=== PATIENT | male | born 1955 | race Caucasian/White ===

== ENCOUNTER 2017-07-04 13:15 | Observation (INO) | payer MEDICARE ==
[~2017-07-04] VITALS: Ht 167.6 cm; Wt 68.0 kg
[~2017-07-04 13:15] MED LIST: ACET325 PO; ASPI325; Accupril40 MG PO; Aspir 8181 MG PO; Ativan1 MG SL; FOLI1 PO; HYDACE5; HYDCHL25 PO; IBUP200; IBUP800 PO; Keflex500 MG PO; LEVE500 PO; LISI5 PO; LOSHYD; METO50ER PO; MULVITA; MULVITMIND PO; Multivitamin1 EAC1 PO; Norco 10-325 T1 EACH PO; Norco 5-325 Ta1 EACH PO; Percocet 5-3251 EACH PO; QUIN10; ROSI2; UNKNOWN BP MED; Vanquish Caple1 EACH PO; Vitamin B-150 MG PO
[2017-07-04] MEDS ORDERED: PANT40 PO (13:30)
[2017-07-04 13:58] LABS: BASOPHILS ABSOLUTE AUTO 0.06 K/mm3 (0.00-0.23); BASOPHILS PERCENT AUTO 1 % (0-2); EOSINOPHILS ABSOLUTE AUTO 0.02 K/mm3 (0.00-0.68); EOSINOPHILS PERCENT AUTO 0 % (0-6); Hematocrit 46.5 % (37.0-53.0); Hemoglobin 16.4 g/dL (13.5-17.5); IMMATURE GRAN ABSOLUTE AUTO 0.04 K/mm3 (0.00-0.10); IMMATURE GRAN PERCENT AUTO 0 % (0-1); LYMPHOCYTES ABSOLUTE AUTO 1.37 K/mm3 (0.84-5.20); LYMPHOCYTES PERCENT AUTO 13 % (21-46); MONOCYTES ABSOLUTE AUTO 0.81 K/mm3 (0.16-1.47); MONOCYTES PERCENT AUTO 7 % (4-13); Mean Corpuscular HGB 32.7 pg (26.0-34.0); Mean Corpuscular HGB Conc 35.3 g/dL (31.5-36.5); Mean Corpuscular Volume 93 fL (80-100); Mean Platelet Volume 9.2 fL (9.1-12.4); NEUTROPHILS ABSOLUTE AUTO 8.67 K/mm3 (1.96-9.15); NEUTROPHILS PERCENT AUTO 79 % (41-73); Platelet Count 348 K/mm3 (150-400); Red Blood Cell Count 5.02 M/mm3 (4.30-5.90); White Blood Cell Count 10.97 K/mm3 (4.00-11.30)
[2017-07-04 14:22] LABS: Alanine Aminotransfer (ALT/SGP 45 U/L (12-78); Albumin, Blood 3.9 g/dL (3.4-5.0); Alk Phos 85 U/L (50-136); Anion Gap 8 mmol/L (6-16); Aspartate Aminotrans (AST/SGOT 80 U/L (12-37); Bilirubin, Total 0.6 mg/dL (0.1-1.0); Blood Urea Nitrogen 20 mg/dL (8-24); CO2, Blood 24 mmol/L (21-32); Chloride, Blood 106 mmol/L (98-108); Glomerular Filtration Rate >60 (60-); Glucose, Blood 98 mg/dL (70-99); Potassium, Blood 4.1 mmol/L (3.5-5.5); Sodium, Blood 138 mmol/L (136-145); Total Protein, Blood 7.9 g/dL (6.4-8.2)
[2017-07-04 14:26] LABS: CPK Creatine Kinase 5200 U/L (39-308)
[2017-07-04 14:50] LABS: Creatine Kinase MB Index 0.1 (0.0-4.0)
[2017-07-04 15:15] LABS: Ethanol (Alcohol), Blood, Med <3 mg/dL
[2017-07-05 02:23] LABS: Source, Urine Voided
[2017-07-05 02:27] LABS: Bilirubin, Urine Neg (Neg); Blood, Urine Neg (Neg); Glucose Qualitative, Urine Neg (Neg); Ketones, Urine 1+ (Neg); Leukocyte Esterase, Urine 1+ (Neg); Nitrite, Urine Neg (Neg); Protein, Urine 1+ (Neg); Urobilinogen, Urine 2+ (Normal)
[2017-07-05 02:29] LABS: Appearance, Urine Clear (Clear); Color, Urine Yellow (P-Yellow)
[2017-07-05 02:41] LABS: Bacteria Few /hpf; Hyaline Casts Rare /lpf (0-2); Mucus Light (0-Heavy); Red Blood Cells, Urine Not Seen /hpf (0-2); Squamous Epithelial Cells Few /hpf (Few)
[2017-07-05 04:39] LABS: BASOPHILS ABSOLUTE AUTO 0.06 K/mm3 (0.00-0.23); BASOPHILS PERCENT AUTO 1 % (0-2); EOSINOPHILS ABSOLUTE AUTO 0.12 K/mm3 (0.00-0.68); EOSINOPHILS PERCENT AUTO 2 % (0-6); Hematocrit 37.7 % (37.0-53.0); Hemoglobin 13.1 g/dL (13.5-17.5); IMMATURE GRAN ABSOLUTE AUTO 0.02 K/mm3 (0.00-0.10); IMMATURE GRAN PERCENT AUTO 0 % (0-1); LYMPHOCYTES ABSOLUTE AUTO 1.83 K/mm3 (0.84-5.20); LYMPHOCYTES PERCENT AUTO 26 % (21-46); MONOCYTES ABSOLUTE AUTO 0.79 K/mm3 (0.16-1.47); MONOCYTES PERCENT AUTO 11 % (4-13); Mean Corpuscular HGB 32.2 pg (26.0-34.0); Mean Corpuscular HGB Conc 34.7 g/dL (31.5-36.5); Mean Corpuscular Volume 93 fL (80-100); Mean Platelet Volume 9.2 fL (9.1-12.4); NEUTROPHILS ABSOLUTE AUTO 4.34 K/mm3 (1.96-9.15); NEUTROPHILS PERCENT AUTO 61 % (41-73); Platelet Count 268 K/mm3 (150-400); RDW Coefficient Variation 12.8 % (11.7-14.2); RDW Standard Deviation 43.7 fL (35.1-46.3); Red Blood Cell Count 4.07 M/mm3 (4.30-5.90); White Blood Cell Count 7.16 K/mm3 (4.00-11.30)
[2017-07-05 05:06] LABS: Anion Gap 7 mmol/L (6-16); Blood Urea Nitrogen 17 mg/dL (8-24); Bun/Creatinine Ratio 20.3 (12.0-20.0); CO2, Blood 30 mmol/L (21-32); Calcium, Blood 8.2 mg/dL (8.5-10.1); Chloride, Blood 104 mmol/L (98-108); Creatine Kinase MB 3.6 ng/mL (0.0-3.6); Creatinine, Blood 0.84 mg/dL (0.60-1.20); Glomerular Filtration Rate >60 (60-); Glucose, Blood 102 mg/dL (70-99); Potassium, Blood 3.2 mmol/L (3.5-5.5); Sodium, Blood 141 mmol/L (136-145)
[2017-07-05 05:20] LABS: CPK Creatine Kinase 4184 U/L (39-308); Creatine Kinase MB Index 0.1 (0.0-4.0)
[2017-07-05 11:13] LABS: C-REACTIVE PROTEIN, EXT RANGE 0.617 mg/dL (0.000-0.300)
[2017-07-05 11:15] LABS: Test Name MYOPII
[2017-07-05 11:23] LABS: Thyroid Stimulating Hormone 1.3 uIU/mL (0.360-4.800)
[2017-07-06 02:58] LABS: Aldolase 28.8 U/L (1.2-7.6)
[2017-07-06 05:50] LABS: Creatine Kinase MB 2.2 ng/mL (0.0-3.6)
[2017-07-06 05:56] LABS: Creatine Kinase MB Index 0.1 (0.0-4.0)
[2017-07-07 04:54] LABS: Albumin, Blood 3.3 g/dL (3.4-5.0); Anion Gap 6 mmol/L (6-16); Blood Urea Nitrogen 10 mg/dL (8-24); Bun/Creatinine Ratio 13.9 (12.0-20.0); CO2, Blood 26 mmol/L (21-32); Calcium, Blood 8.6 mg/dL (8.5-10.1); Chloride, Blood 109 mmol/L (98-108); Creatine Kinase MB 3.7 ng/mL (0.0-3.6); Creatinine, Blood 0.72 mg/dL (0.60-1.20); Glomerular Filtration Rate >60 (60-); Glucose, Blood 90 mg/dL (70-99); Phosphorus, Blood 2.9 mg/dL (2.5-4.9); Potassium, Blood 3.8 mmol/L (3.5-5.5); Sodium, Blood 141 mmol/L (136-145)
[2017-07-07 05:10] LABS: CPK Creatine Kinase 2811 U/L (39-308); Creatine Kinase MB Index 0.1 (0.0-4.0)
[2017-07-08 05:04] LABS: Hematocrit 36.8 % (37.0-53.0); Hemoglobin 12.8 g/dL (13.5-17.5); Mean Corpuscular HGB 31.9 pg (26.0-34.0); Mean Corpuscular HGB Conc 34.8 g/dL (31.5-36.5); Mean Corpuscular Volume 92 fL (80-100); Mean Platelet Volume 9.4 fL (9.1-12.4); Platelet Count 311 K/mm3 (150-400); RDW Coefficient Variation 12.8 % (11.7-14.2); RDW Standard Deviation 43.3 fL (35.1-46.3); Red Blood Cell Count 4.01 M/mm3 (4.30-5.90)
[2017-07-08 05:38] LABS: Anion Gap 5 mmol/L (6-16); Blood Urea Nitrogen 14 mg/dL (8-24); Bun/Creatinine Ratio 19.3 (12.0-20.0); CO2, Blood 28 mmol/L (21-32); Calcium, Blood 8.5 mg/dL (8.5-10.1); Chloride, Blood 108 mmol/L (98-108); Creatine Kinase MB 2.6 ng/mL (0.0-3.6); Creatinine, Blood 0.73 mg/dL (0.60-1.20); Glomerular Filtration Rate >60 (60-); Glucose, Blood 84 mg/dL (70-99); Potassium, Blood 3.7 mmol/L (3.5-5.5); Sodium, Blood 141 mmol/L (136-145)
[2017-07-08 05:48] LABS: CPK Creatine Kinase 1300 U/L (39-308); Creatine Kinase MB Index 0.2 (0.0-4.0)
[2017-07-08] MEDS ORDERED: PRED20 PO (13:05)
[2017-07-10 15:56] LABS: Performing Lab IMMCO DIAGNOSTC
[2018-03-16] MEDS ORDERED: Norco 5-325 Ta1 EACH PO (18:37)
[2018-03-24] MEDS ORDERED: Pantoprazole So40 MG PO (13:28)
[2018-03-25] MEDS ORDERED: Prinivil5 MG PO (09:03)
== END 2017-07-08 13:19 | disposition home or self-care (01) ==
LOC: ER 13:15 → MEDS 13:16
PROVIDERS: Internal Medicine; Student in an Organized Health Care Education/Training Program
DX: G40.909 Epilepsy, unspecified, not intractable, without status epilepticus (principal); F10.239 Alcohol dependence with withdrawal, unspecified; G31.84 Mild cognitive impairment of uncertain or unknown etiology; R74.8 Abnormal levels of other serum enzymes; M19.90 Unspecified osteoarthritis, unspecified site; F17.200 Nicotine dependence, unspecified, uncomplicated; F12.90 Cannabis use, unspecified, uncomplicated; R27.0 Ataxia, unspecified; I16.0 Hypertensive urgency; Z79.52 Long term (current) use of systemic steroids; Z79.899 Other long term (current) drug therapy; Z98.890 Other specified postprocedural states; Z90.49 Acquired absence of other specified parts of digestive tract
CPT/HCPCS: 36415; 70450; 80048; 80053; 80069; 81001; 82085; 82550; 82552; 82553; 83516; 83615; 84443; 85025; 85027; 85651; 86140; 87389; 93005; 93010; 96361; 96365; 96366; 96372; 96375; 96376; 97110; 97112; 97162; 97165; 97535; 99285; G0378; G0480; G8978; G8979; G8987; G8988; G8989; J0360; J1170; J1650; J1885; J2405; J7030; J7070

== ENCOUNTER 2017-09-30 15:36 | Emergency (ER) | payer MEDICARE ==
[~2017-09-30] VITALS: Ht 167.6 cm; Wt 72.6 kg
[~2017-09-30 15:36] MED LIST changes: +PANT40 PO; +PRED20 PO
[2017-09-30] MEDS ORDERED: Prinivil10 MG PO (16:04)
[2017-09-30] MEDS ORDERED: ESCI10 PO (16:04)
[2017-09-30] MEDS ORDERED: Lamictal200 MG PO (16:04)
[2017-09-30 16:06] LABS: BASOPHILS ABSOLUTE AUTO 0.09 K/mm3 (0.00-0.23); BASOPHILS PERCENT AUTO 1 % (0-2); EOSINOPHILS ABSOLUTE AUTO 0.07 K/mm3 (0.00-0.68); EOSINOPHILS PERCENT AUTO 1 % (0-6); Hematocrit 45.5 % (37.0-53.0); Hemoglobin 15.6 g/dL (13.5-17.5); IMMATURE GRAN ABSOLUTE AUTO 0.04 K/mm3 (0.00-0.10); IMMATURE GRAN PERCENT AUTO 0 % (0-1); LYMPHOCYTES ABSOLUTE AUTO 1.48 K/mm3 (0.84-5.20); LYMPHOCYTES PERCENT AUTO 14 % (21-46); MONOCYTES ABSOLUTE AUTO 0.68 K/mm3 (0.16-1.47); MONOCYTES PERCENT AUTO 7 % (4-13); Mean Corpuscular HGB 32.4 pg (26.0-34.0); Mean Corpuscular HGB Conc 34.3 g/dL (31.5-36.5); Mean Corpuscular Volume 94 fL (80-100); Mean Platelet Volume 9.5 fL (9.1-12.4); NEUTROPHILS ABSOLUTE AUTO 8.04 K/mm3 (1.96-9.15); NEUTROPHILS PERCENT AUTO 77 % (41-73); Platelet Count 317 K/mm3 (150-400); RDW Coefficient Variation 13.6 % (11.7-14.2); RDW Standard Deviation 47.5 fL (35.1-46.3); Red Blood Cell Count 4.82 M/mm3 (4.30-5.90)
[2017-09-30 16:25] LABS: Alanine Aminotransfer (ALT/SGP 29 U/L (12-78); Albumin, Blood 3.9 g/dL (3.4-5.0); Albumin/Globulin Ratio 1.1 (0.8-1.8); Alk Phos 97 U/L (50-136); Anion Gap 10 mmol/L (6-16); Aspartate Aminotrans (AST/SGOT 23 U/L (12-37); Bilirubin, Total 0.7 mg/dL (0.1-1.0); Blood Urea Nitrogen 7 mg/dL (8-24); Bun/Creatinine Ratio 8.3 (12.0-20.0); CO2, Blood 25 mmol/L (21-32); Calcium, Blood 8.7 mg/dL (8.5-10.1); Chloride, Blood 110 mmol/L (98-108); Creatinine, Blood 0.85 mg/dL (0.60-1.20); Globulin, Blood 3.4 g/dL (2.2-4.0); Glomerular Filtration Rate >60 (60-); Glucose, Blood 91 mg/dL (70-99); Potassium, Blood 3.7 mmol/L (3.5-5.5); Sodium, Blood 145 mmol/L (136-145); Total Protein, Blood 7.3 g/dL (6.4-8.2); Troponin I <0.015 ng/mL (0.000-0.040)
[2017-09-30 16:56] LABS: PO2 Arterial 67.9 mmHg (80-100); pH Blood Arterial 7.54 (7.35-7.45)
== END 2017-09-30 17:41 | disposition home or self-care (01) ==
LOC: ER 15:36
PROVIDERS: Emergency Medicine
DX: R07.9 Chest pain, unspecified (principal); I10 Essential (primary) hypertension; F17.210 Nicotine dependence, cigarettes, uncomplicated; G40.909 Epilepsy, unspecified, not intractable, without status epilepticus; Z79.899 Other long term (current) drug therapy
CPT/HCPCS: 36415; 36600; 71045; 80053; 82803; 83880; 84484; 85025; 85379; 93005; 93010; 96374; 99284

== ENCOUNTER 2017-10-03 13:22 | Emergency (ER) | payer MEDICARE ==
[~2017-10-03] VITALS: Ht 167.6 cm; Wt 72.6 kg
[~2017-10-03 13:22] MED LIST changes: +ESCI10 PO; +Lamictal200 MG PO; +Prinivil10 MG PO
[2017-10-03 13:48] LABS: BASOPHILS ABSOLUTE AUTO 0.09 K/mm3 (0.00-0.23); BASOPHILS PERCENT AUTO 1 % (0-2); EOSINOPHILS ABSOLUTE AUTO 0.12 K/mm3 (0.00-0.68); EOSINOPHILS PERCENT AUTO 2 % (0-6); Hemoglobin 13.8 g/dL (13.5-17.5); IMMATURE GRAN ABSOLUTE AUTO 0.03 K/mm3 (0.00-0.10); IMMATURE GRAN PERCENT AUTO 0 % (0-1); LYMPHOCYTES ABSOLUTE AUTO 1.52 K/mm3 (0.84-5.20); LYMPHOCYTES PERCENT AUTO 22 % (21-46); MONOCYTES ABSOLUTE AUTO 0.51 K/mm3 (0.16-1.47); MONOCYTES PERCENT AUTO 7 % (4-13); Mean Corpuscular HGB 32.9 pg (26.0-34.0); Mean Corpuscular HGB Conc 35.4 g/dL (31.5-36.5); Mean Corpuscular Volume 93 fL (80-100); Mean Platelet Volume 9.4 fL (9.1-12.4); NEUTROPHILS ABSOLUTE AUTO 4.65 K/mm3 (1.96-9.15); NEUTROPHILS PERCENT AUTO 67 % (41-73); Platelet Count 314 K/mm3 (150-400); RDW Coefficient Variation 13.2 % (11.7-14.2); RDW Standard Deviation 45.3 fL (35.1-46.3); Red Blood Cell Count 4.19 M/mm3 (4.30-5.90); White Blood Cell Count 6.92 K/mm3 (4.00-11.30)
[2017-10-03 14:09] LABS: Alanine Aminotransfer (ALT/SGP 25 U/L (12-78); Albumin, Blood 3.4 g/dL (3.4-5.0); Albumin/Globulin Ratio 1.2 (0.8-1.8); Alk Phos 81 U/L (50-136); Anion Gap 9 mmol/L (6-16); Aspartate Aminotrans (AST/SGOT 19 U/L (12-37); Bilirubin, Total 0.4 mg/dL (0.1-1.0); Blood Urea Nitrogen 8 mg/dL (8-24); Bun/Creatinine Ratio 8.6 (12.0-20.0); CO2, Blood 26 mmol/L (21-32); Calcium, Blood 8.2 mg/dL (8.5-10.1); Chloride, Blood 109 mmol/L (98-108); Creatinine, Blood 0.93 mg/dL (0.60-1.20); Globulin, Blood 2.9 g/dL (2.2-4.0); Glomerular Filtration Rate >60 (60-); Glucose, Blood 71 mg/dL (70-99); Potassium, Blood 3.7 mmol/L (3.5-5.5); Sodium, Blood 144 mmol/L (136-145); Total Protein, Blood 6.3 g/dL (6.4-8.2); Troponin I <0.015 ng/mL (0.000-0.040)
[2017-10-03 14:58] LABS: Ethanol (Alcohol), Blood, Med 73 mg/dL
[2017-10-03] MEDS ORDERED: Prinivil10 MG PO (16:54)
[2017-10-03] MEDS ORDERED: Cyclobenzaprine5 MG PO (17:40)
== END 2017-10-03 17:47 | disposition home or self-care (01) ==
LOC: ER 13:22
PROVIDERS: Emergency Medicine
DX: R07.89 Other chest pain (principal); Z79.899 Other long term (current) drug therapy; I10 Essential (primary) hypertension; F17.210 Nicotine dependence, cigarettes, uncomplicated
CPT/HCPCS: 71046; 80053; 83690; 84484; 85025; 93005; 93010; 96361; 96374; 96375; 99285; G0480; J0360; J1885; J7030

== ENCOUNTER 2017-10-23 10:19 | Emergency (ER) | payer MEDICARE ==
[~2017-10-23] VITALS: Ht 167.6 cm; Wt 76.2 kg
[~2017-10-23 10:19] MED LIST changes: +Cyclobenzaprine5 MG PO
[2017-10-23] MEDS ORDERED: ESCI10 PO (10:38)
[2017-10-23] MEDS ORDERED: LAMO100 PO (10:38)
[2017-10-23 10:45] LABS: BASOPHILS ABSOLUTE AUTO 0.06 K/mm3 (0.00-0.23); BASOPHILS PERCENT AUTO 1 % (0-2); EOSINOPHILS ABSOLUTE AUTO 0.09 K/mm3 (0.00-0.68); EOSINOPHILS PERCENT AUTO 1 % (0-6); Hematocrit 41.5 % (37.0-53.0); Hemoglobin 14.6 g/dL (13.5-17.5); IMMATURE GRAN ABSOLUTE AUTO 0.01 K/mm3 (0.00-0.10); IMMATURE GRAN PERCENT AUTO 0 % (0-1); LYMPHOCYTES ABSOLUTE AUTO 1.36 K/mm3 (0.84-5.20); LYMPHOCYTES PERCENT AUTO 21 % (21-46); MONOCYTES ABSOLUTE AUTO 0.61 K/mm3 (0.16-1.47); MONOCYTES PERCENT AUTO 9 % (4-13); Mean Corpuscular HGB 32.7 pg (26.0-34.0); Mean Corpuscular HGB Conc 35.2 g/dL (31.5-36.5); Mean Corpuscular Volume 93 fL (80-100); Mean Platelet Volume 9.4 fL (9.1-12.4); NEUTROPHILS ABSOLUTE AUTO 4.36 K/mm3 (1.96-9.15); NEUTROPHILS PERCENT AUTO 67 % (41-73); Platelet Count 346 K/mm3 (150-400); RDW Coefficient Variation 12.7 % (11.7-14.2); RDW Standard Deviation 43.8 fL (35.1-46.3); Red Blood Cell Count 4.47 M/mm3 (4.30-5.90); White Blood Cell Count 6.49 K/mm3 (4.00-11.30)
[2017-10-23 10:55] LABS: Anion Gap 7 mmol/L (6-16); Blood Urea Nitrogen 8 mg/dL (8-24); Bun/Creatinine Ratio 8.9 (12.0-20.0); CO2, Blood 28 mmol/L (21-32); Calcium, Blood 8.6 mg/dL (8.5-10.1); Chloride, Blood 106 mmol/L (98-108); Glomerular Filtration Rate >60 (60-); Glucose, Blood 97 mg/dL (70-99); Potassium, Blood 3.5 mmol/L (3.5-5.5); Sodium, Blood 141 mmol/L (136-145)
== END 2017-10-23 11:44 | disposition home or self-care (01) ==
LOC: ER 10:19
PROVIDERS: Emergency Medicine
DX: I10 Essential (primary) hypertension (principal); S46.211A Strain of muscle, fascia and tendon of other parts of biceps, right arm, initial encounter; X58.XXXA Exposure to other specified factors, initial encounter; F17.210 Nicotine dependence, cigarettes, uncomplicated; G40.909 Epilepsy, unspecified, not intractable, without status epilepticus; Z79.899 Other long term (current) drug therapy
CPT/HCPCS: 36415; 80048; 85025; 93005; 93010; 96374; 99283-25

== ENCOUNTER → 2017-11-30 | Outpatient (CLI) | payer MEDICARE ==
[~2017-11-30] MED LIST changes: +LAMO100 PO
[2017-11-30 10:58] LABS: BASOPHILS ABSOLUTE AUTO 0.09 K/mm3 (0.00-0.23); BASOPHILS PERCENT AUTO 0 % (0-2); EOSINOPHILS ABSOLUTE AUTO 0.04 K/mm3 (0.00-0.68); EOSINOPHILS PERCENT AUTO 0 % (0-6); Hematocrit 43.8 % (37.0-53.0); Hemoglobin 15.4 g/dL (13.5-17.5); IMMATURE GRAN ABSOLUTE AUTO 0.12 K/mm3 (0.00-0.10); IMMATURE GRAN PERCENT AUTO 1 % (0-1); LYMPHOCYTES ABSOLUTE AUTO 0.77 K/mm3 (0.84-5.20); LYMPHOCYTES PERCENT AUTO 4 % (21-46); MONOCYTES ABSOLUTE AUTO 1.22 K/mm3 (0.16-1.47); MONOCYTES PERCENT AUTO 6 % (4-13); Mean Corpuscular HGB 32.3 pg (26.0-34.0); Mean Corpuscular HGB Conc 35.2 g/dL (31.5-36.5); Mean Corpuscular Volume 92 fL (80-100); Mean Platelet Volume 9.7 fL (9.1-12.4); NEUTROPHILS ABSOLUTE AUTO 18.33 K/mm3 (1.96-9.15); NEUTROPHILS PERCENT AUTO 89 % (41-73); Platelet Count 324 K/mm3 (150-400); RDW Coefficient Variation 12.9 % (11.7-14.2); RDW Standard Deviation 43.4 fL (35.1-46.3); Red Blood Cell Count 4.77 M/mm3 (4.30-5.90); White Blood Cell Count 20.57 K/mm3 (4.00-11.30)
[2017-11-30 11:01] LABS: Anion Gap 9 mmol/L (6-16); Blood Urea Nitrogen 12 mg/dL (8-24); Bun/Creatinine Ratio 12.2 (12.0-20.0); CO2, Blood 28 mmol/L (21-32); Calcium, Blood 8.8 mg/dL (8.5-10.1); Chloride, Blood 102 mmol/L (98-108); Creatinine, Blood 0.98 mg/dL (0.60-1.20); Glomerular Filtration Rate >60 (60-); Glucose, Blood 122 mg/dL (70-99); Potassium, Blood 3.9 mmol/L (3.5-5.5); Sodium, Blood 139 mmol/L (136-145)
[2017-12-02 05:48] LABS: HIV SCREEN 4TH GENERATION WRFX Non Reactive (Non Reactive)
== END | disposition home or self-care (01) ==
LOC: LAB EV 10:51 → LAB SHORT 10:51
PROVIDERS: Family Medicine
DX: J02.9 Acute pharyngitis, unspecified (principal)
CPT/HCPCS: 80048; 85025; 87070; 87389

== ENCOUNTER → 2018-07-10 | Outpatient (CLI) | payer MEDICARE ==
[~2018-07-10] MED LIST changes: +Pantoprazole So40 MG PO; +Prinivil5 MG PO
== END | disposition home or self-care (01) ==
LOC: LAB SHORT 07:42 → PLD 07:42
DX: C44.91 Basal cell carcinoma of skin, unspecified (principal)
CPT/HCPCS: 88305

== ENCOUNTER → 2018-08-11 | Outpatient (CLI) | payer MEDICARE | END | disposition home or self-care (01) | LOC: PLD 08:21 → LAB SHORT 08:21 | DX: L57.0 Actinic keratosis (principal); C44.329 Squamous cell carcinoma of skin of other parts of face; C44.619 Basal cell carcinoma of skin of left upper limb, including shoulder; C44.519 Basal cell carcinoma of skin of other part of trunk | CPT/HCPCS: 88305 ==

== ENCOUNTER 2018-12-07 11:27 | Emergency (ER) | payer MEDICARE ==
[~2018-12-07] VITALS: Ht 167.6 cm; Wt 72.6 kg
[2018-12-07] MEDS ORDERED: Lamictal200 MG PO (11:58)
[2018-12-07] MEDS ORDERED: PRINIVIL10 MG PO (11:58)
[2018-12-07] MEDS ORDERED: Amlodipine Besy10 MG PO (11:58)
[2018-12-07] MEDS ORDERED: ESCITALOPRAM OX10 MG PO (11:58)
[2018-12-07 12:53] LABS: BASOPHILS ABSOLUTE AUTO 0.07 K/mm3 (0.00-0.23); BASOPHILS PERCENT AUTO 1 % (0-2); EOSINOPHILS ABSOLUTE AUTO 0.09 K/mm3 (0.00-0.68); EOSINOPHILS PERCENT AUTO 1 % (0-6); Hematocrit 46.6 % (37.0-53.0); Hemoglobin 16.3 g/dL (13.5-17.5); IMMATURE GRAN ABSOLUTE AUTO 0.03 K/mm3 (0.00-0.10); IMMATURE GRAN PERCENT AUTO 0 % (0-1); LYMPHOCYTES ABSOLUTE AUTO 1.39 K/mm3 (0.84-5.20); LYMPHOCYTES PERCENT AUTO 16 % (21-46); MONOCYTES PERCENT AUTO 8 % (4-13); Mean Corpuscular HGB 32.8 pg (26.0-34.0); Mean Corpuscular Volume 94 fL (80-100); Mean Platelet Volume 9.1 fL (9.1-12.4); NEUTROPHILS ABSOLUTE AUTO 6.54 K/mm3 (1.96-9.15); NEUTROPHILS PERCENT AUTO 74 % (41-73); Platelet Count 360 K/mm3 (150-400); RDW Coefficient Variation 12.4 % (11.7-14.2); Red Blood Cell Count 4.97 M/mm3 (4.30-5.90); White Blood Cell Count 8.82 K/mm3 (4.00-11.30)
[2018-12-07 13:11] LABS: Alanine Aminotransfer (ALT/SGP 45 U/L (12-78); Albumin, Blood 3.7 g/dL (3.4-5.0); Albumin/Globulin Ratio 1.1 (0.8-1.8); Alk Phos 110 U/L (50-136); Anion Gap 8 mmol/L (6-16); Aspartate Aminotrans (AST/SGOT 31 U/L (12-37); Bilirubin, Total 0.7 mg/dL (0.1-1.0); Blood Urea Nitrogen 6 mg/dL (8-24); Bun/Creatinine Ratio 7.7 (12.0-20.0); C-REACTIVE PROTEIN, EXT RANGE 0.734 mg/dL (0.000-0.300); CO2, Blood 25 mmol/L (21-32); Calcium, Blood 8.9 mg/dL (8.5-10.1); Chloride, Blood 105 mmol/L (98-108); Creatinine, Blood 0.78 mg/dL (0.60-1.20); Globulin, Blood 3.4 g/dL (2.2-4.0); Glomerular Filtration Rate >60 (60-); Glucose, Blood 96 mg/dL (70-99); Potassium, Blood 4.1 mmol/L (3.5-5.5); Sodium, Blood 138 mmol/L (136-145); Total Protein, Blood 7.1 g/dL (6.4-8.2)
[2018-12-07] MEDS ORDERED: Bactrim Ds Tab1 EACH PO (13:24)
[2018-12-07] MEDS ORDERED: CEPH500 PO (13:24)
[2018-12-07] MEDS ORDERED: HYDR1TAB94 PO (13:24)
[2019-01-07] MEDS ORDERED: PANT40 PO (12:27)
== END 2018-12-07 13:43 | disposition home or self-care (01) ==
LOC: ER 11:27
PROVIDERS: Physician Assistant
DX: L03.032 Cellulitis of left toe (principal); Z79.899 Other long term (current) drug therapy; I10 Essential (primary) hypertension; G40.909 Epilepsy, unspecified, not intractable, without status epilepticus; F17.210 Nicotine dependence, cigarettes, uncomplicated
CPT/HCPCS: 36415; 73630; 80053; 83605; 84550; 85025; 85651; 86140; 87040; 87076; 93005; 93010; 99284-25

== ENCOUNTER → 2018-12-30 | Outpatient (CLI) | payer MEDICARE ==
[~2018-12-30] MED LIST changes: +Amlodipine Besy10 MG PO; +Bactrim Ds Tab1 EACH PO; +CEPH500 PO; +ESCITALOPRAM OX10 MG PO; +HYDR1TAB94 PO; +PRINIVIL10 MG PO
== END | disposition home or self-care (01) ==
LOC: PLD 08:46 → LAB SHORT 08:46
DX: D48.5 Neoplasm of uncertain behavior of skin (principal)
CPT/HCPCS: 88305

== ENCOUNTER 2019-01-08 08:24 | Day surgery (SDC) | payer MEDICARE ==
[~2019-01-08] VITALS: Ht 162.6 cm; Wt 72.0 kg
--- NOTE | 2019-01-08 09:01 | NUR ---
01/08/19 0900 Paulina Guillen PT. WITH OPEN SORE ON HIS UPPER BACK. PT. VERBALIZES HAVING A SKIN CANCER REMOVED A FEW WEEKS AGO. PT. HAD IT COVERED WITH A BANDAID BUT NOT TODAY. PT. ALSO WITH HICCUPS HE HAS SAID EVERY MORNING.
--- NOTE | 2019-01-08 10:16 | NUR ---
01/08/19 Paulina Granados PT. VERBALIZES HIS SKIN CANCER THAT WAS TAKEN OFF HIS BACK WAS BOTHERING HIM. PT. ASKING IF A BANDAID COULD BE APPLIED, BANDAID APPLIED PER PT. REQUEST.
== END 2019-01-08 10:05 | disposition home or self-care (01) ==
LOC: ORSCSDS 08:24
PROVIDERS: Surgery
PROC: 0DBH8ZX Excision of Cecum, Via Natural or Artificial Opening Endoscopic, Diagnostic (ICD-10-PCS; principal; 2019-01-08 09:30)
PROC: 0DBL8ZX Excision of Transverse Colon, Via Natural or Artificial Opening Endoscopic, Diagnostic (ICD-10-PCS; principal; 2019-01-08 09:30)
PROC: 0DBK8ZX Excision of Ascending Colon, Via Natural or Artificial Opening Endoscopic, Diagnostic (ICD-10-PCS; principal; 2019-01-08 09:30)
PROC: 0DBP8ZX Excision of Rectum, Via Natural or Artificial Opening Endoscopic, Diagnostic (ICD-10-PCS; principal; 2019-01-08 09:30)
DX: Z12.11 Encounter for screening for malignant neoplasm of colon (principal); Z86.010 Personal history of colon polyps; D12.0 Benign neoplasm of cecum; D12.2 Benign neoplasm of ascending colon; D12.3 Benign neoplasm of transverse colon; K62.1 Rectal polyp; I10 Essential (primary) hypertension; E78.00 Pure hypercholesterolemia, unspecified; E11.9 Type 2 diabetes mellitus without complications; F32.9 Major depressive disorder, single episode, unspecified; Z87.891 Personal history of nicotine dependence; G40.909 Epilepsy, unspecified, not intractable, without status epilepticus; Z79.899 Other long term (current) drug therapy
CPT/HCPCS: 88305; J2704; J7120

== ENCOUNTER → 2019-04-29 | Outpatient (CLI) | payer MEDICARE ==
[2019-04-29 09:55] LABS: BASOPHILS ABSOLUTE AUTO 0.09 K/mm3 (0.00-0.23); BASOPHILS PERCENT AUTO 1 % (0-2); EOSINOPHILS PERCENT AUTO 3 % (0-6); Hematocrit 48.9 % (37.0-53.0); Hemoglobin 17.3 g/dL (13.5-17.5); IMMATURE GRAN ABSOLUTE AUTO 0.03 K/mm3 (0.00-0.10); IMMATURE GRAN PERCENT AUTO 0 % (0-1); LYMPHOCYTES ABSOLUTE AUTO 1.22 K/mm3 (0.84-5.20); LYMPHOCYTES PERCENT AUTO 16 % (21-46); MONOCYTES ABSOLUTE AUTO 0.57 K/mm3 (0.16-1.47); MONOCYTES PERCENT AUTO 7 % (4-13); Mean Corpuscular HGB 33.5 pg (26.0-34.0); Mean Corpuscular HGB Conc 35.4 g/dL (31.5-36.5); Mean Corpuscular Volume 95 fL (80-100); Mean Platelet Volume 9.3 fL (9.1-12.4); NEUTROPHILS ABSOLUTE AUTO 5.56 K/mm3 (1.96-9.15); NEUTROPHILS PERCENT AUTO 73 % (41-73); Platelet Count 335 K/mm3 (150-400); RDW Coefficient Variation 13.2 % (11.7-14.2); RDW Standard Deviation 46.1 fL (35.1-46.3); Red Blood Cell Count 5.17 M/mm3 (4.30-5.90); White Blood Cell Count 7.67 K/mm3 (4.00-11.30)
[2019-04-29 10:11] LABS: Alanine Aminotransfer (ALT/SGP 42 U/L (12-78); Albumin/Globulin Ratio 1.3 (0.8-1.8); Alk Phos 94 U/L (40-126); Anion Gap 13 mmol/L (6-16); Aspartate Aminotrans (AST/SGOT 27 U/L (12-37); Bilirubin, Total 0.7 mg/dL (0.1-1.0); Blood Urea Nitrogen 6 mg/dL (8-24); Bun/Creatinine Ratio 5.8 (12.0-20.0); CO2, Blood 25 mmol/L (21-32); Calcium, Blood 9.3 mg/dL (8.5-10.1); Chloride, Blood 103 mmol/L (98-108); Creatinine, Blood 1.03 mg/dL (0.60-1.20); Globulin, Blood 3.2 g/dL (2.2-4.0); Glomerular Filtration Rate >60 (60-); Glucose, Blood 110 mg/dL (70-99); Potassium, Blood 4.1 mmol/L (3.5-5.5); Sodium, Blood 141 mmol/L (136-145); Total Protein, Blood 7.2 g/dL (6.4-8.2)
[2019-04-29 10:21] LABS: Troponin I <0.017 ng/mL (0.000-0.040)
== END | disposition home or self-care (01) ==
LOC: LAB EV 09:51 → LAB SHORT 09:51
PROVIDERS: Family Medicine
DX: R07.89 Other chest pain (principal)
CPT/HCPCS: 80053; 84484; 85025

== ENCOUNTER → 2019-06-02 | Outpatient (CLI) | payer MEDICARE ==
[2019-06-02 09:58] LABS: BASOPHILS ABSOLUTE AUTO 0.08 K/mm3 (0.00-0.23); BASOPHILS PERCENT AUTO 1 % (0-2); EOSINOPHILS ABSOLUTE AUTO 0.14 K/mm3 (0.00-0.68); EOSINOPHILS PERCENT AUTO 2 % (0-6); Hematocrit 44.6 % (37.0-53.0); Hemoglobin 15.7 g/dL (13.5-17.5); IMMATURE GRAN ABSOLUTE AUTO 0.05 K/mm3 (0.00-0.10); IMMATURE GRAN PERCENT AUTO 1 % (0-1); LYMPHOCYTES ABSOLUTE AUTO 1.19 K/mm3 (0.84-5.20); LYMPHOCYTES PERCENT AUTO 13 % (21-46); MONOCYTES ABSOLUTE AUTO 0.66 K/mm3 (0.16-1.47); MONOCYTES PERCENT AUTO 7 % (4-13); Mean Corpuscular HGB 32.6 pg (26.0-34.0); Mean Corpuscular HGB Conc 35.2 g/dL (31.5-36.5); Mean Corpuscular Volume 93 fL (80-100); Mean Platelet Volume 8.7 fL (9.1-12.4); NEUTROPHILS ABSOLUTE AUTO 7.31 K/mm3 (1.96-9.15); NEUTROPHILS PERCENT AUTO 78 % (41-73); Platelet Count 589 K/mm3 (150-400); RDW Coefficient Variation 12.8 % (11.7-14.2); RDW Standard Deviation 43.7 fL (35.1-46.3); Red Blood Cell Count 4.82 M/mm3 (4.30-5.90); White Blood Cell Count 9.43 K/mm3 (4.00-11.30)
[2019-06-02 10:16] LABS: Alanine Aminotransfer (ALT/SGP 48 U/L (12-78); Albumin, Blood 3.2 g/dL (3.4-5.0); Albumin/Globulin Ratio 0.7 (0.8-1.8); Alk Phos 98 U/L (40-126); Anion Gap 12 mmol/L (6-16); Aspartate Aminotrans (AST/SGOT 30 U/L (12-37); Bilirubin, Total 0.3 mg/dL (0.1-1.0); Blood Urea Nitrogen 6 mg/dL (8-24); Bun/Creatinine Ratio 6.9 (12.0-20.0); CO2, Blood 25 mmol/L (21-32); Calcium, Blood 8.7 mg/dL (8.5-10.1); Chloride, Blood 105 mmol/L (98-108); Creatinine, Blood 0.87 mg/dL (0.60-1.20); Globulin, Blood 4.3 g/dL (2.2-4.0); Glomerular Filtration Rate >60 (60-); Glucose, Blood 99 mg/dL (70-99); Potassium, Blood 3.5 mmol/L (3.5-5.5); Sodium, Blood 142 mmol/L (136-145); Total Protein, Blood 7.5 g/dL (6.4-8.2); Troponin I <0.017 ng/mL (0.000-0.040)
== END | disposition home or self-care (01) ==
LOC: LAB SHORT 09:55 → LAB EV 09:55
PROVIDERS: Family Medicine
DX: R07.9 Chest pain, unspecified (principal)
CPT/HCPCS: 80053; 84484; 85025

== ENCOUNTER 2021-11-15 12:46 | Inpatient (IN) | payer MEDICARE ==
[~2021-11-15] VITALS: Ht 175.3 cm; Wt 73.6 kg
[2021-11-15 13:04] LABS: Hematocrit 51.3 % (37.0-53.0); Hemoglobin 17.3 g/dL (13.5-17.5); Mean Corpuscular HGB 31.8 pg (26.0-34.0); Mean Corpuscular HGB Conc 33.7 g/dL (31.5-36.5); Mean Corpuscular Volume 94 fL (80-100); Mean Platelet Volume 10.3 fL (9.1-12.4); Platelet Count 261 K/mm3 (150-400); RDW Coefficient Variation 13.2 % (11.7-14.2); RDW Standard Deviation 45.8 fL (35.1-46.3); Red Blood Cell Count 5.44 M/mm3 (4.30-5.90); White Blood Cell Count 18.75 K/mm3 (4.00-11.30)
[2021-11-15 13:26] LABS: Anion Gap 20 mmol/L (6-16); Blood Urea Nitrogen 14 mg/dL (8-24); CHOL/HDL RATIO 2.7; CO2, Blood 12 mmol/L (21-32); CPK Creatine Kinase 802 U/L (39-308); Chloride, Blood 107 mmol/L (98-108); Cholesterol 117 mg/dL (50-200); Creatine Kinase MB 74.4 ng/mL (0.0-3.6); Creatine Kinase MB Index 9.3 (0.0-4.0); Creatinine, Blood 1.08 mg/dL (0.60-1.20); Glomerular Filtration Rate 76 (60-); Glucose, Blood 178 mg/dL (70-99); HDL Cholesterol 44 mg/dL (>39); LDL/HDL RATIO 1.1; Low Density Lipoprotein Chol 49 mg/dL (0-110); Magnesium, Blood 2.8 mg/dL (1.6-2.4); Sodium, Blood 139 mmol/L (136-145); Triglycerides 122 mg/dL (30-160); Very Low Density Lipoprot Chol 24 mg/dL (6-32)
[2021-11-15 15:00] LABS: PCO2 Arterial 26.5 mmHg (35-45); PO2 Arterial 333 mmHg (80-100); pH Blood Arterial 7.32 (7.35-7.45)
[2021-11-15 16:53] LABS: BASOPHILS ABSOLUTE AUTO 0.04 K/mm3 (0.00-0.23); BASOPHILS PERCENT AUTO 0 % (0-2); EOSINOPHILS PERCENT AUTO 0 % (0-6); Hematocrit 41.4 % (37.0-53.0); Hemoglobin 14.3 g/dL (13.5-17.5); IMMATURE GRAN ABSOLUTE AUTO 0.22 K/mm3 (0.00-0.10); IMMATURE GRAN PERCENT AUTO 1 % (0-1); LYMPHOCYTES ABSOLUTE AUTO 0.68 K/mm3 (0.84-5.20); LYMPHOCYTES PERCENT AUTO 4 % (21-46); MONOCYTES ABSOLUTE AUTO 1.76 K/mm3 (0.16-1.47); MONOCYTES PERCENT AUTO 9 % (4-13); Mean Corpuscular HGB 31.6 pg (26.0-34.0); Mean Corpuscular HGB Conc 34.5 g/dL (31.5-36.5); Mean Corpuscular Volume 91 fL (80-100); Mean Platelet Volume 10.4 fL (9.1-12.4); NEUTROPHILS PERCENT AUTO 86 % (41-73); Platelet Count 255 K/mm3 (150-400); RDW Coefficient Variation 13.2 % (11.7-14.2); RDW Standard Deviation 43.7 fL (35.1-46.3); Red Blood Cell Count 4.53 M/mm3 (4.30-5.90)
[2021-11-15 17:07] LABS: International Normalized Ratio 1.14; Prothrombin Time Results 11.9 Sec (9.7-11.5)
[2021-11-15 17:20] LABS: Albumin, Blood 2.5 g/dL (3.4-5.0); Albumin/Globulin Ratio 0.7 (0.8-1.8); Bilirubin, Total 1.6 mg/dL (0.1-1.0); Bun/Creatinine Ratio 15.5 (12.0-20.0); Calcium, Blood 8.2 mg/dL (8.5-10.1); Creatinine, Blood 1.16 mg/dL (0.60-1.20); Globulin, Blood 3.4 g/dL (2.2-4.0); Potassium, Blood 4.3 mmol/L (3.5-5.5); Total Protein, Blood 5.9 g/dL (6.4-8.2)
[2021-11-15 17:39] LABS: Source, Urine Foley catheter
--- NOTE | 2021-11-15 17:54 | NUR ---
PT TO ICU ROOM 7 FROM [facility]. PT ARRIVES ON PROPOFOL 20 MCG/KG/MIN, AGGRASTAT @13.5 ML/HR X1 BAG. PT DISPLAYS DECEREBRATE POSTURING WITH ANY TYPE OF STIMULATION. SEDATION PLACED ON STANDBY TO ASSESS NEURO STATUS, PT FAILS TO RESPOND PURPOSEFULLY, BLOOD PRESSURE INCREASED AND SEDATION RESTARTED. PUPILS 3 MM EQUAL ROUND AND REACTIVE. MOTTLING BLE TO KNEES AND BUE TO ELBOWS. SKIN COLD TO TOUCH. PULSES FAINT/THREADY. VENT SETTINGS AC 16/450/5/30%, SATS 97%. PT OVERBREATHING VENT WITH RR 25-30, END TIDAL C02 16. RIGHT RADIAL ARTLINE IN PLACE. PT HYPERTENSIVE WITH SBP 180-190'S. PEREZ PATENT AND DRAINING GABRIEL URINE. CURRENT TEMP 97.5 WITH GOAL TEMP 97.0. SEE PT'S SISTER UPDATED BY DR. VAUGHN, PER SISTER PT WOULD NOT WANT ANY HEROIC EFFORTS. PT MADE DNR. SEE FULL SHIFT ASSESSMENT.
[2021-11-15 18:02] LABS: Appearance, Urine Cloudy (Clear); Blood, Urine 5+ (Neg); Color, Urine Amber (P-Yellow); Glucose Qualitative, Urine Neg (Neg); Ketones, Urine 2+ (Neg); Leukocyte Esterase, Urine 1+ (Neg); Nitrite, Urine Neg (Neg); Protein, Urine 3+ (Neg); Urobilinogen, Urine 3+ (Normal)
[2021-11-15 18:18] LABS: Bilirubin, Urine 1+ (Neg)
[2021-11-15 18:20] LABS: Bacteria Many /hpf; Granular Casts 0-2 /lpf (0)
[2021-11-15 18:21] LABS: Renal Epithelial Rare /hpf (0-Rare); Squamous Epithelial Cells Not Seen /hpf (Few); Transitional Epithelial Cells Few /hpf (0-Rare)
--- NOTE | 2021-11-15 20:30 | NUR ---
ASSESSMENT: ASSUMED CARE OF PT. PT SEDATED AT SAS 3 WITH PROPOFOL. NO RESTRAINTS ON AT THIS TIME. PT HAS SMALL ABNORMAL FLEXION OF ARMS WITH ORAL CARE. PUPILS 4MM BILAT AND REACTIVE TO LIGHT. PT HAS SWALLOW, BUT NO GAG OR COUGH. LS COARSE T/O WITH BIOX 100% ON VENT SETTINGS AC 16, TV 450, FIO2 30% AND PEEP 5. 8.0 ETT 25@ GUMS. HEART SOUNDS DISTANT WITH MONITOR SHOWING [address] BLOCK WITH [address] ELEVATIONS WITH HR 64. SKIN PALE, COOL AND MOIST FROM ICE PACKS ON TO KEEP TEMP <97.0 PER MD ORDERS. BILAT LE'S MOTTLED. DOPPLER PULSES OF R PT, R DP AND L PT. UNABLE TO DOPPLER L DP. BILAT RADIAL PULSES WEAK. 18G IV LAC WITH PROPOFOL AT 10.7CC/HR= 25MCG/KG/MIN. 20G IV R WRIST WITH AGGRASTAT AT 13.5CC/HR= 0.156MCG/KG/MIN. R RADIAL ART LINE ZEROED. ABD FIRM WITH HYPOACTIVE BT'S. OG CLAMPED AFTER MEDS GIVEN. PEREZ TEMP PROBE DRAINING DARK GABRIEL URINE.
--- NOTE | 2021-11-16 00:43 | NUR ---
UPDATE: WHEN DOING BATH; PT JERKED FOOT OUT OF MY HAND WHEN I WAS AGGRESSIVELY CLEANING IT. WHEN DOING ORAL CARE; PT GRIMACED AND TURNED HEAD TOWARD THE SIDE OF HIS MOUTH I WAS CLEANING.
[2021-11-16 04:04] LABS: BASOPHILS ABSOLUTE AUTO 0.04 K/mm3 (0.00-0.23); BASOPHILS PERCENT AUTO 0 % (0-2); EOSINOPHILS PERCENT AUTO 0 % (0-6); Hemoglobin 14.6 g/dL (13.5-17.5); IMMATURE GRAN ABSOLUTE AUTO 0.12 K/mm3 (0.00-0.10); IMMATURE GRAN PERCENT AUTO 1 % (0-1); LYMPHOCYTES ABSOLUTE AUTO 0.89 K/mm3 (0.84-5.20); LYMPHOCYTES PERCENT AUTO 6 % (21-46); MONOCYTES ABSOLUTE AUTO 1.38 K/mm3 (0.16-1.47); MONOCYTES PERCENT AUTO 9 % (4-13); Mean Corpuscular HGB 32.7 pg (26.0-34.0); Mean Corpuscular HGB Conc 34.8 g/dL (31.5-36.5); Mean Corpuscular Volume 94 fL (80-100); Mean Platelet Volume 10.7 fL (9.1-12.4); NEUTROPHILS ABSOLUTE AUTO 12.42 K/mm3 (1.96-9.15); NEUTROPHILS PERCENT AUTO 84 % (41-73); Platelet Count 271 K/mm3 (150-400); RDW Coefficient Variation 13.5 % (11.7-14.2); RDW Standard Deviation 45.9 fL (35.1-46.3); Red Blood Cell Count 4.47 M/mm3 (4.30-5.90); White Blood Cell Count 14.85 K/mm3 (4.00-11.30)
[2021-11-16 04:21] LABS: Alanine Aminotransfer (ALT/SGP 225 U/L (12-78); Albumin, Blood 2.4 g/dL (3.4-5.0); Albumin/Globulin Ratio 0.6 (0.8-1.8); Alk Phos 90 U/L (50-136); Anion Gap 15 mmol/L (6-16); Aspartate Aminotrans (AST/SGOT 248 U/L (12-37); Bilirubin, Total 0.8 mg/dL (0.1-1.0); Blood Urea Nitrogen 22 mg/dL (8-24); Bun/Creatinine Ratio 18.8 (12.0-20.0); CHOL/HDL RATIO 2.7; CO2, Blood 20 mmol/L (21-32); Calcium, Blood 8.2 mg/dL (8.5-10.1); Chloride, Blood 106 mmol/L (98-108); Cholesterol 91 mg/dL (50-200); Creatinine, Blood 1.17 mg/dL (0.60-1.20); Globulin, Blood 3.9 g/dL (2.2-4.0); Glomerular Filtration Rate 69 (60-); Glucose, Blood 177 mg/dL (70-99); HDL Cholesterol 34 mg/dL (>39); LDL/HDL RATIO 0.7; Low Density Lipoprotein Chol 22 mg/dL (0-110); Potassium, Blood 4.2 mmol/L (3.5-5.5); Sodium, Blood 141 mmol/L (136-145); Total Protein, Blood 6.3 g/dL (6.4-8.2); Triglycerides 174 mg/dL (30-160); Very Low Density Lipoprot Chol 34 mg/dL (6-32)
--- NOTE | 2021-11-16 05:57 | NUR ---
SUMMARY: PUPILS EQUAL AND REACTIVE AT 4MM BILAT. PT SPIKED A TEMP OF 99.7; IS ACTIVELY BEING COOLED WITH ICE PACKS AND COLD TOWELS; HAS ALSO RECIEVED A DOSE OF TYLENOL. PROPOFOL AT 15MCG/KG/MIN; PT HAVING DECORTICATE POSTURING WITH ORAL CARE. PT HAS COUGH AND SWALLOW, BUT NO GAG. NO CORNEAL REFLEXES. PT IS BREATHING OVER THE VENT. VENT SETTINGS AC 16/ TV 450/ FIO2 30% AND PEEP 5. PT CONTINUES TO BE IN 3RD DEGREE HEART BLOCK WITH ELEVATED ST'S. HAD 11 BEAT RUN OF VTACH THIS AM. MOTTLED FROM ABD DOWN. ART LINE WAS PULLED THIS AM; UNABLE TO GET READINGS FROM IT OR DRAW. CT SCAN OF HEAD TOADY.
--- NOTE | 2021-11-16 10:16 | NUR ---
SEDATION VACATION SEDATION TURNED OFF AT 0950 AND ABOUT 1005 PT STARTED HAVING REPETITIVE JERKING MOTIONS IN HIS R SHOULDER/ARM WITHOUT ANY STIMULI. STIMULI APPLIED TO ALL 4 EXTREMITIES WITHOUT RESPONSE. PT'S EYES REMAIN IN DOWNWARD GAZE. PT'S BP WENT UP TO 153/122 AND RR INCREASE TO UPPER 30S. DR. VAUGHN CAME TO BEDSIDE TO ASSESS PT AND GAVE INSTRUCTIONS TO RESTART SEDATION. SEDATION RESTARTED AT 1015. ALSO, DR. VAUGHN INFORMED ABOUT PT'S TUBE PLACEMENT SINCE RT AND THIS NURSE READ IT AT 23 AT [facility] AND PAST CHARTING REPORTED ETT 25 AT [facility]. PT STILL GETTING GOOD VOLUMES FROM VENT. NO FURTHER ACTION REQUIRED AT THIS TIME PER DR. VAUGHN. SPOKE WITH PT'S SISTER THIS MORNING AND PROVIDED UPDATE.
--- NOTE | 2021-11-16 12:22 | NUR ---
REASSESSMENT PT REMAINS INTUBATED AND SEDATED. HE CONTINUES TO HAVE MINIMAL RESPONSES TO NOXIOUS STIMULI. HE SOMETIMES GRIMACES WITH ORAL CARE, NO RESPONSE IN EXTREMITIES TO PAINFUL STIMULI. PUPILS REMAIN EQUAL AND REACTIVE, 4MM, DOWNWARD GAZE. WHEN SEDATION WAS OFF HE HAD REPETITIVE R SHOULDER TWITCH/SPASM. HE HAS SOME BLOOD IN HIS ORAL CAVITY WITH ORAL CARE AND BRUISING TO TONGUE NOTED, DR. VAUGHN AWARE. LUNGS ARE CLEAR AT THIS TIME, SMALL AMT OF SPUTUM SUCTIONED THROUGHOUT THE MORNING. CONTINUES IN COMPLETE HEART BLOCK WITH VENTRICULAR RATE OF 69, STILL WITH ST ELEVATION. BOWEL TONES PRESENT. DARK YELLOW, CLOUDY URINE IN PEREZ BAG. SKIN MOTTLED FROM FEET TO UPPER LEGS. COOLING BLANKET ON PT TEMPERATURE WAS 99.0F AT START OF SHIFT. WITH COOLING BLANKET TEMP HAS INCREASED TO 99.3F. WILL GIVE TYLENOL. PT WENT FOR HEAD CT AND TOLERATED WELL.
--- NOTE | 2021-11-16 17:13 | NUR ---
SHIFT SUMMARY PT REMAINS INTUBATED AND SEDATED. NO CHANGE IN NEUROLOGICAL STATUS FROM EARLIER ASSESSMENTS. LUNGS ARE CLEAR, ONLY SMALL AMT OF SPUTUM THROUGHOUT THE DAY. REMAINS IN HEARTBLOCK, BP STABLE. HYPOACTIVE BT. DARK YELLOW URINE. DR. SHEIKH CAME BY THIS EVENING AND ORDERED IV FLUIDS. SKIN REMAINS MOTTLED, COOL TO TOUCH BUT CORE TEMPERATURE IS FEBRILE. DISCUSSED WITH DR. VAUGHN TYLENOL AND COOLING BLANKET HAVEN'T HELPED LOWER IT. RECEIVED ORDER FOR ONE TIME DOSE OF KETOROLAC. DR. VAUGHN SPOKE WITH PT'S SISTER AFTER HE REVIEWED HEAD CT AND PLAN IS TO CONTINUE CARE FOR 72 HOURS FROM ADMISSION AND THEN MOVE TO COMFORT CARE IF NO IMPROVEMENT.
--- NOTE | 2021-11-16 22:06 | NUR ---
ASSUMED PT CARE FROM TAN ZAMARRIPA AT 1900 PT INTUBATED AND SEDATED. PROPOFOL AT 35MCG/KG/MIN. PT RESPONSIVE TO NOXIOUS STIMULI. CORNEAL REFLEX PRESENT, GRIMACING NOTED, COUGH AND SWALLOW NOTED. NO GAG OR OPENING EYES/TRACKING. PT WITHDRAWALS AWAY FROM PAIN WHEN SOLES OF FEET ARE STROKED. NO PURPOSEFUL MOVEMENTS; THEREFORE, REMAINS OUT OF RESTRAINTS. PT NOTED TO HAVE A DOWNWARD GAZE WHEN SUPINE. WHEN TURNED TO THE LEFT GAZE NOTED TO BE UP AND TO THE LEFT. VENT SETTINGS AC/VC 16, VT 450, PEEP 5, FIO2 30%, ETCO2 18, RR 24, SPO2 97%. PT NOTED TO BE IN A 3RD DEGREE HEART BLOCK WITH ST ELEVATION NOTED; HR 50-60'S. BP'S STABLE, SEE FLOWSHEET. NS INFUSING AT 150ML/HR. PEREZ CATHETER IS PATENT AND DRAINING MINIMAL, DARK GABRIEL COLORED URINE TO GRAVITY. TEMP IS 99.5. COOLING BLANKET IN PLACE WITH GOAL TEMP TO BE 97.0. SEE SHIFT ASSESSMENT FOR FURTHER DETAILS.
[2021-11-17 03:59] LABS: Albumin, Blood 1.9 g/dL (3.4-5.0); Albumin/Globulin Ratio 0.6 (0.8-1.8); Bilirubin, Total 0.8 mg/dL (0.1-1.0); Bun/Creatinine Ratio 30.5 (12.0-20.0); Calcium, Blood 7.7 mg/dL (8.5-10.1); Creatinine, Blood 0.95 mg/dL (0.60-1.20); Globulin, Blood 3.4 g/dL (2.2-4.0); Potassium, Blood 3.7 mmol/L (3.5-5.5); Total Protein, Blood 5.3 g/dL (6.4-8.2)
--- NOTE | 2021-11-17 05:04 | NUR ---
END OF SHIFT SUMMARY NO SIGNIFICANT CHANGES. PT REMAINS INTUBATED/SEDATED. PROPOFOL AT 15MCG/KG/MIN. VENT AC/VC 16, VT 450, PEEP 5, FIO2 30%, SPO2 98%, ETCO2 17, RR 23. CORNEAL REFLEX REMAINS PRESENT. GROSS MOTOR MOVEMENT OF TOES WHEN SOLES OF FEET ARE STROKED. POSITIVE COUGH AND SWALLOW. GAZE REMAINS DOWNWARD AND TO THE LEFT. PUPILS REMAIN EQUAL AND REACTIVE. NO PURPOSEFUL MOVEMENTS. NS INFUSING AT 150ML/HR. COOLING BLANKET REMAINS IN PLACE FOR A TARGET TEMP OF 97. PT MEDICATED WITH TYLENOL D/T INCREASING TEMP DESPITE COOLING BLANKET. PEREZ CATHETER HAD MINIMAL DARK GABRIEL COLORED URINE NOTED. PT REMAINS MOTTLED FROM ABDOMEN TO FEET. VERY COLD WITH FAINT PULSES. PT REMAINS IN A COMPLETE HEART BLOCK WITH ST ELEVATION NOTED; RATE 60'S. BP'S STABLE, SEE FLOWSHEET. WILL CONTINUE TO MONITOR UNTIL REPORT IS HANDED OFF TO ONCOMING RN.
--- NOTE | 2021-11-17 07:26 | NUR ---
TOOK OVER CARE OF PT AT 0700. PT ON 15 OF PROPOFOL, VENTED ACVC 16/450/30%/5, COOLING BLANKET IN PLACE. ETCO2 18. PT IN THIRD DEGREE HEART BLOCK.
--- NOTE | 2021-11-17 15:44 | NUR ---
SUMMARY NEURO: PT HAS BRAIN STEM REFLEXES IN PLACE. INTERMITTENT SLIGHT FACIAL GRIMACE TO PAIN RESPONSE FOR EXTREMETIES, OTHERWISE NO MOVEMENT. PUPILS REACTIVE BUT NO BLINKING WHEN EYES THREATENED. CARDIAC: 3RD DEGREE HEART BLOCK. RATE 60-70. BLE MOTTLED. FAINT PULES THROUGHOUT. LUNGS; PT VENTED ON ACVC 16/450/30%/5. TACHYPNEIC 25-35. WHITE/YELLOW SPUTUM. COARSE UPPER OBES, DIMINISHED BASES. SKIN: BLE MOTTLED, CLAMMY. GI: SMEAR BM. : TEA COLORED URINE TMAX 101.2
--- NOTE | 2021-11-17 19:15 | NUR ---
ASSUMPTION OF CARE PT REMAINS INTUBATED WITH VENT SETTINGS AC/VC 16/450/5/30%. HE IS RECEIVING PROPOFOL 50MCG/KG/MIN AND NS 20ML/HR. TUBE FEEDING INFUSING AT GOAL RATE. PEREZ PATENT AND DRAINING TO GRAVITY. URINE IS CLOUDY WITH LARGE AMOUNT OF SEDIMENT. TWO COOLING BLANKETS IN PLACE TO MAINTAIN CORE TEMP <97 DEGREE F. MOTTLING FROM LOWER ABDOMEN TO FEET. VSS AT THIS TIME.
[2021-11-17 20:25] LABS: PCO2 Arterial 29.7 mmHg (35-45); PO2 Arterial 358 mmHg (80-100); pH Blood Arterial 7.36 (7.35-7.45)
--- NOTE | 2021-11-17 21:00 | NUR ---
UPDATE RR INCREASING TO 30S-40S. HR INCREASED TO 80S-90S. NO CHANGE IN NEURO STATUS. PT DOES NOT RESPOND TO PAINFUL STIMULI. PT SHIVERING, ARMS HAVE SLIGHT INTERNAL ROTATION. NO FACIAL GRIMACING. PROPOFOL TITRATED TO 60MCG/KG/MIN, MEDICATED WITH FENTANYL PER EMAR.
--- NOTE | 2021-11-18 00:20 | NUR ---
SEDATION VACATION PROPOFOL OFF FOR APPROX 30MIN. CORNEAL REFLEX PRESENT. PUPILS INCREASED TO 5MM, EQUAL, SLUGGISH TO RESPOND. COUGH AND GAG PRESENT. NO FACIAL GRIMACING. NO RESPONSE TO PAINFUL STIMULI TO BILAT UPPER EXTREMITIES. SMALL JERKING/SHIVERING MOTIONS NOTED TO BILAT ARMS WITHOUT STIMULUS. BOTTOM OF FEET STROKED WITH PEN LIGHT, BILAT LOWER EXTREMITIES SLIGHTLY WITHDRAW. PT BECAME ASYNCHRONOUS WITH VENT, RR INCREASED TO 30S-40S. HR INCREASED FROM 60S TO 90S. BP INCREASED FROM 110S TO 140S. PROPOFOL RESTARTED. AFTER 10MIN, PT BECAME SYNCHRONOUS WITH VENT, HR AND BP DECREASED. PUPILS DECREASED TO 3MM.
[2021-11-18 03:37] LABS: Hematocrit 33.6 % (37.0-53.0); Hemoglobin 11.8 g/dL (13.5-17.5); Mean Corpuscular HGB 32.2 pg (26.0-34.0); Mean Corpuscular HGB Conc 35.1 g/dL (31.5-36.5); Mean Corpuscular Volume 92 fL (80-100); Mean Platelet Volume 10.8 fL (9.1-12.4); Platelet Count 230 K/mm3 (150-400); RDW Coefficient Variation 13.9 % (11.7-14.2); RDW Standard Deviation 47.3 fL (35.1-46.3); Red Blood Cell Count 3.67 M/mm3 (4.30-5.90); White Blood Cell Count 9.87 K/mm3 (4.00-11.30)
[2021-11-18 04:00] LABS: Albumin, Blood 1.9 g/dL (3.4-5.0); Albumin/Globulin Ratio 0.5 (0.8-1.8); Bilirubin, Total 0.6 mg/dL (0.1-1.0); Bun/Creatinine Ratio 42.6 (12.0-20.0); Creatinine, Blood 0.63 mg/dL (0.60-1.20); Globulin, Blood 3.7 g/dL (2.2-4.0); Potassium, Blood 3.5 mmol/L (3.5-5.5); Total Protein, Blood 5.6 g/dL (6.4-8.2)
--- NOTE | 2021-11-18 05:19 | NUR ---
SHIFT SUMMARY PT REMAINS INTUBATED WITH VENT SETTINGS AC/VC 16/450/5/35%. HE IS RECEIVING PROPOFOL 40MCG/KG/MIN. SEE SEDATION VACATION NOTE REGARDING NEURO STATUS. DURING CARE PT OCCASIONALLY BECOMES ASYNCHRONOUS WITH VENT WITH RR 30S-40S, INCREASED HR AND BP. TUBE FEEING INFUSING AT GOAL RATE. PEREZ PATENT AND DRAINING TO GRAVITY. URINE IS CLOUDY WITH LARGE AMOUNT OF SEDIMENT. WILL REPORT TO ONCOMING RN.
--- NOTE | 2021-11-18 07:45 | NUR ---
TOOK OVER CARE OF PT AT 0700, PT VENTED ON ACVC 16/450/35%/5. PROPOFOL RUNNING AT 40.
--- NOTE | 2021-11-18 16:57 | NUR ---
SUMMARY PT INTUBATED ON ACVC 16/450/35%/5, PROPOFOL INFUSING AT 20MCG/HR. NEURO: BRAINSTEM REFLEXES IN TACT. NO PAIN RESPONSE. PUPILS SLUGGISH. DOWNWARD GAZE. LUNGS: CLEAR UPPERS, DIMINISHED BASES. MODERATE, WHITE STREAKED SECRETIONS. CARDIAC: ALTERNATING BETWEEM 3RD DEGREE BLOCK AND 2ND DEGREE TYPE 1. HR 80'S-90'S. BLE STILL COLD AND MOTTLED. FAINT PULSES. GI: NO BM TODAY. DISTENDED ABD. ACTIVE BOWEL SOUNDS, TF RUNNING AT GOAL. : 300 GABRIEL URINE OUTPUT.
--- NOTE | 2021-11-18 19:15 | NUR ---
ASSUMPTION OF CARE PT REMAINS INTUBATED WITH VENT SETTINGS AC/VC 16/450/5/30%. HE IS RECEIVING PROPOFOL 20MCG/KG/MIN AND NS TKO. TUBE FEEDING INFUSING AT GOAL RATE WITH ZERO RESIDUALS. BOWEL TONES HYPOACTIVE. PEREZ PATENT AND DRAINING GABRIEL COLORED URINE. CORE TEMP 102.3, ICE PACKS IN PLACE. SEE SHIFT ASSESSMENT.
--- NOTE | 2021-11-18 20:00 | NUR ---
SEDATION VACATION PROPOFOL OFF FOR 30MIN. PUPILS 5MM, SLUGGISH TO RESPOND TO LIGHT. PT HAS DOWNWARD GAZE. EYES OPEN, SPONTANEOUS BLINKING, DOES NOT RESPOND TO VISUAL THREAT OR TRACK MOVEMENT. CORNEAL REFLEX PRESENT. WEAK GAG AND COUGH PRESENT. SLIGHT HEAD TURN DURING ORAL CARE. BILAT UPPER EXTREMITIES UNRESPONSIVE TO PAIN. NO FACIAL GRIMACING OR OTHER MOVEMENTS NOTED. GROSS MOTOR MOVEMENT PRESENT WHEN SOLE OF FEET ARE STROKED. KNEES SLIGHTLY BEND, TOES AND FEET DO NOT RESPOND. PT TACHYPNEIC WITH RR IN 30S, INCREASED WORK OF BREATHING WITH USE OF ACCESSORY MUSCLES. HR INCREASED TO 110S. SBP INCREASED TO 140S. PROPOFOL RESTARTED AT 20MCG/KG/MIN. PT COMPLIANT WITH VENT, HR AND BP DECREASED.
--- NOTE | 2021-11-19 00:20 | NUR ---
SECOND SEDATION VACATION PROPOFOL OFF FOR 25MIN. PT OPENS EYES SPONTANEOUSLY AND HAS DOWNWARD GAZE. PUPILS 5MM, SLUGGISH TO RESPOND TO LIGHT. PT DOES NOT RESPOND TO VISUAL THREAT AND DOES NOT TRACK ANY MOVEMENTS. CORNEAL REFLEX PRESENT. OCCASIONAL SPONTANEOUS BLINKING. COUGH AND GAG PRESENT. L ARM HAS MYOCLONIC MOVEMENT WHERE LIMB BECOMES RIGID AND INTERNALLY ROTATES WITHOUT STIMULATION. R ARM BECOMES RIGID BUT DOES NOT ROTATE. WITH NAILBED PRESSURE, BILAT UPPER EXTREMITIES BECOME RIGID AND L ARM INTERNALLY ROTATES. WHILE ASSESSING UPPER EXTREMITIES, GAZE CHANGES TO RIGHT UPWARD. PUPILS REMAIN 5MM AND SLUGGISH. EYES OPEN AND CLOSE SPONTANEOUSLY. GROSS MOVEMENT NOTED TO BILAT LOWER EXTREMITIES WHEN SOLE OF FOOT STROKED. PT ASYNCHRONOUS WITH VENT, RR INCREASED TO 30S-40S, INCREASED WORK OF BREATHING WITH USE OF ACCESSORY MUSCLES. HR INCREASED TO RATE 110S. SBP INCREASED TO 130S. PROPOFOL RESTARTED AT 20MCG/KG/MIN AND MEDICATED PER EMAR.
[2021-11-19 04:14] LABS: Albumin, Blood 1.8 g/dL (3.4-5.0); Albumin/Globulin Ratio 0.5 (0.8-1.8); Bilirubin, Total 0.5 mg/dL (0.1-1.0); Bun/Creatinine Ratio 38.9 (12.0-20.0); Calcium, Blood 7.6 mg/dL (8.5-10.1); Creatinine, Blood 0.64 mg/dL (0.60-1.20); Globulin, Blood 3.8 g/dL (2.2-4.0); Potassium, Blood 3.7 mmol/L (3.5-5.5); Total Protein, Blood 5.6 g/dL (6.4-8.2)
--- NOTE | 2021-11-19 05:19 | NUR ---
SHIFT SUMMARY PT REMAINS INTUBATED WITH VENT SETTINGS AC/VC 16/450/5/30%. HE IS RECEIVING PROPOFOL 30MCG/KG/MIN AND NS TKO. NEURO: SEE SEDATION VACATION NOTES. WHILE PT IS ON PROPOFOL, HE HAS STRAIGHT FOWARD GAZE, PUPILS 3MM AND SLUGGISH. CORNEAL REFLEX INTACT. OCCASIONAL GROSS MOVEMENT OF HEAD TO NOXIOUS STIMULI. UPPER EXTREMITIES UNRESPONSIVE TO PAINFUL STIMULI. GROSS MOVEMENT NOTED TO LOWER EXTREMITIES WITH PAINFUL STIMULI. RESP: LUNGS COARSE T/O AND DIMINISHED IN BASES. WITH SEDATION, PT IS SYNCHRONOUS WITH VENT. SMALL AMOUNT OF THICK ZACARIAS ETT SECRETIONS. CARDIAC: 3RD DEGREE BLOCK. FAINT PULSES THROUGHOUT. MAP >65. TRACE EDEMA TO BUE AND BLE. MOTTLING REMAINS ON BLE. GI: PIVOT TUBE FEEDING INFUSING AT GOAL RATE. ZERO RESIDUALS THIS SHIFT. BOWEL TONES ACTIVE. ONE SMALL LIQUID BM THIS SHIFT. : TEMP PEREZ IN PLACE DRAINING GABRIEL/TEA COLORED URINE TO GRAVITY. SHIFT OUTPUT OF 350ML. TMAX 102.9. ADMINISTERED TYLENOL PER EMAR. WILL REPORT TO ONCOMING RN.
--- NOTE | 2021-11-19 07:06 | NUR ---
TOOK OVER CARE OF PT AT 0700. PT VENTED ON ACVC 16/450/30%/5. WITH 30MCG OF PROPOFOL GTT RUNNING.
--- NOTE | 2021-11-19 13:45 | NUR ---
Pal Care visit made this am. No family at bedside. Pt remains ventilated and unresponsive with no purposeful movement. He appears comfortable. Increased edema of extremities noted from yesterday. While I was in ICU family member called in and spoke to RN for status update. Family member states pt would not want to "live like this" and wanted to discuss withdrawal of life support with . Later I received call from RN stating family had decided to extubate and place pt on comfort care. Dr has placed those orders. Pal Care to remain available for additional support as requested/indicated.
--- NOTE | 2021-11-19 14:54 | NUR ---
PT EXTUBATED AT 1433, COMFORT CARE MEASURE INITIATED.
--- NOTE | 2021-11-19 17:26 | NUR ---
PT RESTING, ON COMFORT MEASURES, Q2 TURNS AND MUSIC THERAPY
--- NOTE | 2021-11-19 19:00 | NUR ---
ASSUMPTION OF CARE PT EXTUBATED AND PLACED ON COMFORT CARE TODAY. HE IS LYING SUPINE WITH PILLOWS UNDER LIMBS. EYES CLOSED. HR 60S ON MONITOR, RADIAL PULSE WITH DOPPLER PRESENT. RR 20-30. AUDIBLE WHEEZE AND GARGLE. ORAL CARE PROVIDED. MEDICATED PER EMAR FOR COMFORT AND AIR HUNGER. MUSIC PLAYING, LIGHTS DIMMED.
--- NOTE | 2021-11-19 20:04 | NUR ---
TIME OF ON [facility] PT'S HR DECREASED FROM 60S TO 30S, THEN CONTINUED TO MARCE UNTIL ASYSTOLE ON MONITOR. BHUMIKA MADDOX PRONOUNCED TOD 2003. POST MORTEM CARE COMPLETED. SISTER TYRESE NOTIFIED. PERSONAL BELONGINGS INCLUDE BOOTS, KEYS, WALLET AND BELT. SHE WILL COME TO [facility] BELONGINGS. PLAN TO ARRANGE TRANSPORTATION TO [facility] IN [place].
--- NOTE | 2021-11-19 22:58 | NUR ---
SAMANTHA PT LEFT DEPARTMENT AT THIS TIME WITH SAMANTHA STAFF. SISTER TYRESE WILL COLLECT BELONGINGS TOMORROW.
== END 2021-11-19 20:04 | DRG 250 ==
LOC: ER 12:46 → ICUW 13:07 → ICUE 13:07
PROVIDERS: Emergency Medicine; Internal Medicine; Internal Medicine Critical Care Medicine; ADMIT Internal Medicine Interventional Cardiology
PROC: 02703ZZ Dilation of Coronary Artery, One Artery, Percutaneous Approach (ICD-10-PCS; principal; 2021-11-15)
PROC: 02C03ZZ Extirpation of Matter from Coronary Artery, One Artery, Percutaneous Approach (ICD-10-PCS; 2021-11-15)
PROC: 4A023N7 Measurement of Cardiac Sampling and Pressure, Left Heart, Percutaneous Approach (ICD-10-PCS; 2021-11-15)
PROC: B2151ZZ Fluoroscopy of Left Heart using Low Osmolar Contrast (ICD-10-PCS; 2021-11-15)
PROC: B2111ZZ Fluoroscopy of Multiple Coronary Arteries using Low Osmolar Contrast (ICD-10-PCS; 2021-11-15)
PROC: 0BH18EZ Insertion of Endotracheal Airway into Trachea, Via Natural or Artificial Opening Endoscopic (ICD-10-PCS; 2021-11-15)
PROC: 5A12012 Performance of Cardiac Output, Single, Manual (ICD-10-PCS; 2021-11-15)
PROC: 5A1945Z Respiratory Ventilation, 24-96 Consecutive Hours (ICD-10-PCS; 2021-11-17)
DX: I21.19 ST elevation (STEMI) myocardial infarction involving other coronary artery of inferior wall (principal); I46.2 Cardiac arrest due to underlying cardiac condition; J96.01 Acute respiratory failure with hypoxia; R40.20 Unspecified coma; E87.2 Acidosis; G93.1 Anoxic brain damage, not elsewhere classified; Z51.5 Encounter for palliative care; F10.20 Alcohol dependence, uncomplicated; M19.90 Unspecified osteoarthritis, unspecified site; G31.84 Mild cognitive impairment of uncertain or unknown etiology; I25.5 Ischemic cardiomyopathy; G40.909 Epilepsy, unspecified, not intractable, without status epilepticus; Z68.23 Body mass index [BMI] 23.0-23.9, adult; I49.01 Ventricular fibrillation; I10 Essential (primary) hypertension; R57.0 Cardiogenic shock; E11.9 Type 2 diabetes mellitus without complications; M25.512 Pain in left shoulder; E66.9 Obesity, unspecified; F17.210 Nicotine dependence, cigarettes, uncomplicated; E78.5 Hyperlipidemia, unspecified; Z90.49 Acquired absence of other specified parts of digestive tract; Z98.890 Other specified postprocedural states; Z79.899 Other long term (current) drug therapy
CPT/HCPCS: 31500; 36415; 36600; 51702; 70450; 71045; 80048; 80053; 80061; 81001; 82550; 82553; 82803; 82947; 83036; 83735; 84484; 85025; 85027; 85347; 85610; 85730; 86850; 86900; 86901; 87040; 92941; 93005; 93010; 93458; 94002; 94003; 94640; 94664; 94762; 99152; 99153; 99285-25; A9270; C1725; C1757; C1769; C1887; C1894; C9113; J0153; J0171; J0461; J1170; J1644; J1650; J1815; J1885; J2060; J2250; J2270; J2704; J3010; J3246; J7030; J7040; Q9967